=== PATIENT | male | born 1985 | race Caucasian/White ===

== ENCOUNTER 2018-07-23 15:34 | Emergency (ER) | payer BC ==
--- NOTE | 2018-07-23 16:16 | EDM.PDOC ---
ED HPI GENERAL MEDICAL PROBLEM - General Chief Complaint: Abdominal Pain Stated Complaint: ABD PAIN Time Seen by Provider: 07/23/18 15:43 Source of Information: Reports: Patient, RN Notes Reviewed History Limitations: Reports: No Limitations - History of Present Illness INITIAL COMMENTS - FREE TEXT/NARRATIVE: Patient is a 33-year-old male who presents to the ED for the evaluation of abdominal pain. The patient was seen at the walk-in clinic and he did have some lab work done, with an elevated white count of 13,900, and a UA that showed a large amount of blood in the urine at 50-200 blood cells present. The patient states that he developed abdominal pain this morning, and he has vomited 3 times since then. The patient states that the pain is intermittent in nature, and comes and goes in waves. He states the bumps in the road did not upset his abdominal pain. He denies any dysuria or urinary urgency at this time. He would put his pain at a 3 out of 10 today. Right Lower Abdomen Pain Score (Numeric/FACES): 2 - Related Data Allergies Allergy/AdvReac Type Severity Reaction Status Date / Time No Known Allergies Allergy Verified 07/23/18 15:50 Home Meds: Home Meds Ondansetron [Zofran ODT] 4 mg PO Q8H PRN #28 tab.dis 07/23/18 [Rx] Tamsulosin HCl [Flomax] 0.4 mg PO ASDIRECTED #1 capsule 07/23/18 [Rx] Past Medical History - Past Surgical History Musculoskeletal Surgical History: Reports: Arthroscopic Knee Social & Family History - Tobacco Use Smoking Status *Q: Never Smoker Second Hand Smoke Exposure: No - Caffeine Use Caffeine Use: Reports: Coffee, Energy Drinks - Recreational Drug Use Recreational Drug Use: No ED ROS GENERAL - Review of Systems Review Of Systems: See Below Constitutional: Denies: Fever, Chills HEENT: Reports: No Symptoms Respiratory: Reports: No Symptoms Cardiovascular: Reports: No Symptoms Endocrine: Reports: No Symptoms GI/Abdominal: Reports: Abdominal Pain (RLQ and groin), Nausea, Vomiting : Denies: Dysuria Musculoskeletal: Reports: No Symptoms Skin: Reports: No Symptoms Neurological: Reports: No Symptoms Psychiatric: Reports: No Symptoms Hematologic/Lymphatic: Reports: No Symptoms Immunologic: Reports: No Symptoms ED EXAM, GI/ABD - Physical Exam Exam: See Below Exam Limited By: No Limitations General Appearance: Alert, WD/WN, No Apparent Distress Eyes: Bilateral: Normal Appearance Respiratory/Chest: No Respiratory Distress, Lungs Clear, Normal Breath Sounds, No Accessory Muscle Use, Chest Non-Tender Cardiovascular: Normal Peripheral Pulses, Regular Rate, Rhythm, No Murmur GI/Abdominal Exam: Normal Bowel Sounds, Soft, Non-Tender, No Distention, No Mass. No: Rigid, Rebound, Tender Back Exam: Normal Inspection, Full Range of Motion Extremities: Normal Inspection, Normal Range of Motion, Normal Capillary Refill Neurological: Alert, Oriented, Normal Cognition, No Motor/Sensory Deficits Psychiatric: Normal Affect, Normal Mood Skin Exam: Warm, Dry, Intact, Normal Color, No Rash Course - Vital Signs Last Recorded V/S: Last Vital Signs Temp 98.4 F 07/23/18 15:43 Pulse 65 07/23/18 15:43 Resp 12 07/23/18 15:43 BP 153/83 H 07/23/18 15:43 Pulse Ox 98 07/23/18 15:43 - Orders/Labs/Meds Orders: Active Orders 24 hr Category Date Time Status Abdomen Pelvis wo Cont [CT] Stat Exams 07/23/18 16:02 Ordered - Re-Assessments/Exams Free Text/Narrative Re-Assessment/Exam: 07/23/18 16:18 Patient presents to the ED for the evaluation of abdominal pain. His workup at the walk-in clinic included laboratory values that showed a white count of 13, 900, and also gross hematuria. I did order an abdominal pelvis CT without contrast for evaluation of a possible kidney stone versus appendicitis at this time. 07/23/18 16:[address] is done, and does demonstrate a possible kidney stone in the left UVJ, and a another suspicious stone looking mass in the left kidney as well. Official radiology read is pending however. Departure - Departure Time of Disposition: 16:41 Disposition: Home, Self-Care 01 Condition: Fair Clinical Impression: Kidney stone, Kidney stone on right side - Discharge Information *PRESCRIPTION DRUG MONITORING PROGRAM REVIEWED*: No *COPY OF PRESCRIPTION DRUG MONITORING REPORT IN PATIENT KAMILAH: No Instructions: Kidney Stones, [id number], Dietary Guidelines to Help Prevent Kidney Stones Referrals: PCP,None [Primary Care Provider] - Additional Instructions: You have been evaluated in the ED today for your abdominal pain. Your labs done at the walk-in clinic, was suggestive of appendicitis versus a kidney stone. Your CT at the ED are here today demonstrate that you did in fact have a 3 mm kidney stone that is almost into the bladder, and one 5.4 mm kidney stone within the right kidney. You should keep yourself hydrated, as this will help the kidney stones passed. Please strain your urine so that you can make sure that the stone has passed. You have been given a prescription for Zofran, please take one tab underneath her tongue every 8 hours as needed for nausea. You have been given a prescription for Flomax, this should help the kidney stone passage your bladder as well. You may take 500 mg Tylenol or 600 mg ibuprofen every 6 hours as needed for pain relief. Please return to the ED if your symptoms change or worsen - My Orders Last 24 Hours: My Active Orders 07/23/18 16:02 Abdomen Pelvis wo Cont [CT] Stat - Assessment/Plan Last 24 Hours: My Active Orders 07/23/18 16:02 Abdomen Pelvis wo Cont [CT] Stat
--- NOTE | 2018-07-23 16:30 | CT ---
CT abdomen and pelvis Technique: Multiple axial sections were obtained from above the kidneys inferiorly through the pubic symphysis. Intravenous contrast and oral contrast not given. Study has been performed as a ureteral stone protocol. Findings: 5.4 mm nonobstructing stone is noted within the right kidney. Left kidney shows no abnormal calcifications. Right ureter is prominent in size and shows mild surrounding inflammatory change. This finding is caused by an obstructing distal right ureteral stone located at the UVJ measuring approximately 3 mm. No other abnormal calcifications are seen along the course of the ureters. Small portion of the visualized lung bases are clear. Noncontrast appearance of the liver and spleen are within normal limits. Adrenal glands show no nodule. Pancreas is normal. Aorta shows no aneurysm. No retroperitoneal adenopathy or mesenteric abnormalities are seen. Appendix is seen which is normal in size. No pelvic mass or adenopathy is seen. No bowel dilatation is seen. Bone window settings were reviewed which appear within normal limits for the patient's age. Small fat-containing umbilical hernia is incidentally noted. Impression: 1. Mild hydroureter caused by an obstructing stone within the distal right ureter located at the UVJ. This stone measures approximately 3 mm. 2. 5.4 mm nonobstructing stone within the right kidney. 3. Other incidental findings as noted above. Diagnostic code #3
== END 2018-07-23 17:00 | disposition home or self-care (01) ==
LOC: JD.ED 15:34
DX: N20.2 Calculus of kidney with calculus of ureter (principal)
CPT/HCPCS: 74176; 74176-26; 99284; 99284-25